=== PATIENT | female | born 1965 | race African-American/Black ===

== ENCOUNTER 2018-11-11 06:28 | Emergency (ER) | payer MEDICAID ==
[2018-11-11 06:59] LABS: ADD MAN DIFF? NO
[2018-11-11 07:03] LABS: BASOPHILS % 0.3 % (0.0-2.0); EOSINOPHILS % 0.2 % (0.0-7.0); HEMOGLOBIN 15.8 g/dl (12.0-16.0); LYMPHOCYTES # 2.4 10^3/ul (0.8-2.9); LYMPHOCYTES % 22.3 % (15.0-51.0); MEAN CORPUSCULAR HEMOGLOBIN 27.9 pg (29.0-33.0); MEAN CORPUSCULAR HGB CONC 33.6 g/dl (32.0-37.0); MEAN PLATELET VOLUME 9.3 fl (7.4-10.4); MONOCYTE # 0.7 10^3/ul (0.3-0.9); MONOCYTES % 6.2 % (0.0-11.0); NEUTROPHIL # 7.5 10^3/ul (1.6-7.5); NEUTROPHILS % 70.6 % (39.0-77.0); PLATELET COUNT 325 10^3/UL (140-415); RED BLOOD COUNT 5.66 10^6/ul (4.20-5.40); RED CELL DISTRIBUTION WIDTH 13.7 % (11.5-14.5)
[2018-11-11 07:03] LABS: WHITE BLOOD COUNT 10.7 10^3/ul (4.8-10.8)
[2018-11-11 07:22] LABS: ANION GAP 15 (5-13); BLOOD UREA NITROGEN 30 mg/dl (7-20); CALCIUM 10.1 mg/dl (8.4-10.2); CARBON DIOXIDE 29 mmol/L (21-31); CHLORIDE 97 mmol/L (97-110); CHOL/HDL RATIO 6.2 RATIO; CHOLESTEROL 273 mg/dl (100-200); CREATININE 1.21 mg/dl (0.44-1.00); Estimated GFR 47 mL/min (>60); GLUCOSE 336 mg/dl (70-220); HDL CHOLESTEROL 44 mg/dl (37-92); INR 0.96; LDL CHOLESTEROL,CALCULATED 192 mg/dl; POTASSIUM 3.8 mmol/L (3.5-5.1); PROTIME 12.9 Sec (11.9-14.9); SODIUM 141 mmol/L (135-144); TRIGLYCERIDES 185 mg/dl (0-149)
[2018-11-11 07:23] LABS: PARTIAL THROMBOPLASTIN TIME 30.3 Sec (23.0-35.0)
[2018-11-11 07:31] LABS: HEMOGLOBIN A1C 10.1 % (0-5.9)
[2018-11-11 07:34] LABS: TROPONIN-I 0.102 ng/ml (0.000-0.120)
[2018-11-11 07:40] LABS: ADD UMIC YES; UR ASCORBIC ACID NEGATIVE (NEGATIVE); UR BILIRUBIN (Dip) NEGATIVE (NEGATIVE); UR BLOOD (Dip) NEGATIVE (NEGATIVE); UR CLARITY SLIGHTLY CLOUDY (CLEAR); UR COLOR YELLOW (YELLOW); UR GLUCOSE (Dip) 3+ mg/dL (NEGATIVE); UR KETONES (Dip) NEGATIVE (NEGATIVE); UR LEUKOCYTE ESTERASE (Dip) NEGATIVE Leu/ul (NEGATIVE); UR MUCUS FEW /HPF (NONE SEEN); UR NITRITE (Dip) NEGATIVE (NEGATIVE); UR RBC 2 /HPF (0-5); UR SPECIFIC GRAVITY (Dip) 1.027 (1.003-1.030); UR SQUAMOUS EPITHELIAL CELL FEW /HPF (FEW); UR TOTAL PROTEIN (Dip) 2+ mg/dl (NEGATIVE); UR UROBILINOGEN (Dip) 1+ mg/dL (NEGATIVE); UR WBC 6 /HPF (0-5)
[2018-11-11 07:54] LABS: AMPHETAMINE/METHAMPHETAMINE Negative (NEGATIVE); BARBITURATES Negative (NEGATIVE); BENZODIAZEPINES Negative (NEGATIVE); CANNABINOIDS Negative (NEGATIVE); COCAINE Negative (NEGATIVE); OPIATES Negative (NEGATIVE)
== END 2018-11-11 08:25 | disposition home or self-care (01) ==
LOC: E/R 06:28
DX: G51.0 Bell's palsy (principal); I10 Essential (primary) hypertension; E11.9 Type 2 diabetes mellitus without complications
CPT/HCPCS: 36415; 70450; 71045; 80048; 80061; 80307; 81001; 81025; 82962; 83036; 84484; 85025; 85610; 85730; 93005; 99285-25

== ENCOUNTER 2018-11-25 06:21 | Emergency (ER) | payer MEDICAID ==
[2018-11-25] MEDS: NICARDipine HCL 30 MG CAPSULE PO (07:33)
== END 2018-11-25 08:41 | disposition home or self-care (01) ==
LOC: E/R 06:21
DX: I10 Essential (primary) hypertension (principal); E11.9 Type 2 diabetes mellitus without complications; Z79.84 Long term (current) use of oral hypoglycemic drugs
CPT/HCPCS: 82962; 99283